=== PATIENT | female | born 1935 | race Caucasian/White ===

== ENCOUNTER 2019-01-18 07:18 | Inpatient (IN) | payer OTHER ==
[~2019-01-18] VITALS: Ht 162.6 cm; Wt 72.0 kg
[2019-01-18] MEDS ORDERED: ASPIRIN 300 MG SUPP PR STA (07:21)
[2019-01-18] MEDS ORDERED: NITROGLYCERIN 50 MG/D5W (PMX) 250 ML IV STA (07:21)
[2019-01-18 07:33] VITALS: Ht 162.6 cm; Wt 72.0 kg
[2019-01-18] MEDS ORDERED: CEFEPIME 2GM/50 ML (PMX) 50 ML IVPB STA (08:42)
[2019-01-18] MEDS ORDERED: ACET-2047 PO (08:44)
[2019-01-18] MEDS ORDERED: ALBU8.5H8 INH (08:44)
[2019-01-18] MEDS ORDERED: IPRA3AMP29 INHALATION (08:45)
[2019-01-18] MEDS ORDERED: ALLO100T PO (08:46)
[2019-01-18] MEDS ORDERED: FAMO10TA84 PO (08:46)
[2019-01-18] MEDS ORDERED: ATOR20TA38 PO (08:46)
[2019-01-18] MEDS ORDERED: FENO145T37 PO (08:47)
[2019-01-18] MEDS ORDERED: GABA300C16 PO (08:47)
[2019-01-18] MEDS ORDERED: HYDR2TAB36 PO (08:48)
[2019-01-18] MEDS ORDERED: APIX2.5T PO (08:50)
[2019-01-18] MEDS ORDERED: FLUT1BLS INHALATION (08:50)
[2019-01-18] MEDS ORDERED: ERGO2000 PO (08:51)
[2019-01-18] MEDS ORDERED: HYDR-3670 PO (08:52)
[2019-01-18] MEDS ORDERED: PRED10TA PO (08:52)
[2019-01-18] MEDS ORDERED: RANI150T5 PO (08:52)
--- NOTE | 2019-01-18 08:52 | ERD ---
ER Documentation Chief Complaint Chief Complaint SOB, hypoxic sudden onset HPI Patient is an 83-year-old female with hypertension, diabetes, chronic kidney disease, anemia, and A. fib who presents with shortness of breath. The patient has right-sided chest pain and high blood pressure. She was given nitroglycerin. CPAP was placed for hypoxia. She was brought in by ambulance. Please note the history and physical exam is limited secondary to the patient's shortness of breath. ROS All systems reviewed and are negative except as per history of present illness. Medications Home Meds Reported Medications Ascorbic Acid* (Vitamin C*) 500 Mg Capsule.sa, 500 MG PO DAILY, CAP 01/18/19 Multivitamins* (Theragran*) 1 Tab Tab, 1 TAB PO DAILY, TAB 01/18/19 Ranitidine Hcl* (Ranitidine Hcl*) 150 Mg Tablet, 150 MG PO HS, #30 TAB 01/18/19 Prednisone* (Prednisone*) 10 Mg Tab, 10 MG PO DAILY, TAB 01/18/19 Hydralazine Hcl* (Hydralazine Hcl*) 10 Mg Tablet, 10 MG PO BID PRN for ELEVATED BLOOD PRESSURE, #60 TAB HOLD FOR SBP <110 01/18/19 Ergocalciferol (Vitamin D2) (VITAMIN D2) 2,000 Unit Tablet, 2000 UNIT PO DAILY, TAB 01/18/19 Fluticasone/Vilanterol (Breo Ellipta 200-25 Mcg INH) 1 Each Blst.w.dev, 1 PUFF INHALATION DAILY, #1 INHALER 01/18/19 Apixaban* (Eliquis*) 2.5 Mg Tablet, 2.5 MG PO BID, TAB 01/18/19 Hydromorphone Hcl* (Dilaudid*) 2 Mg Tablet, 2 MG PO Q2HWA PRN for MODERATE - SEVERE PAIN, TAB 01/18/19 Gabapentin* (Gabapentin*) 300 Mg Capsule, 300 MG PO TID, #90 CAP 01/18/19 Fenofibrate Nanocrystallized* (Fenofibrate*) 145 Mg Tablet, 145 MG PO DAILY, TAB 01/18/19 Atorvastatin Calcium* (Atorvastatin Calcium*) 20 Mg Tablet, 20 MG PO QHS, #30 TAB 01/18/19 Allopurinol* (Allopurinol*) 100 Mg Tablet, 100 MG PO DAILY, TAB 01/18/19 Ipratropium-Albuterol (Ipratropium-Albuterol) 0.5-3 Mg/3 Ml Ampul.neb, 3 ML INHA LATION Q4 PRN for RESPITORY FAILURE, #30 VIAL 01/18/19 Albuterol Sulfate* (Proair HFA*) 8.5 Gm Hfa.aer.ad, 2 PUFF INH Q6 PRN for WHEEZING AND SOB, #1 INHALER 01/18/19 Acetaminophen* (Acetaminophen*) 650 Mg Tablet, 650 MG PO Q4 PRN for MILD PAIN LEVEL 1-3, #30 TAB AND FEVER 01/18/19 Discontinued Reported Medications Famotidine* (Famotidine*) 10 Mg Tablet, 10 MG PO DAILY, #30 TAB 01/18/19 Allergies Allergies: Coded Allergies: No Known Allergy (Unverified , 01/18/19) PMhx/Soc Positive for hypertension, diabetes, anemia, chronic kidney disease, and atrial fibrillation FmHx Unable to obtain Physical Exam Vitals Vital Signs Date Temp Pulse Resp B/P (MAP) Pulse Ox O2 O2 Flow FiO2 Time Delivery Rate 01/18/19 120 100 100 07:37 01/18/19 97.8 78 30 153/122 100 07:33 (132) Physical Exam Const: Moderate distress, CPAP in place Head: Atraumatic Eyes: Normal Conjunctiva ENT: Normal External Ears, Nose and Mouth. Neck: Full range of motion. No meningismus. Resp: Rhonchorous bilaterally Cardio: Regular rate and rhythm, no murmurs Abd: Soft, non tender, non distended. Normal bowel sounds Skin: Pale skin Back: No midline or flank tenderness Ext: No cyanosis, or edema Neur: Awake and alert Psych: Normal Mood and Affect Result Diagram: 01/18/19 0742 01/18/19 0742 Results 24 hrs Laboratory Tests Test 01/18/19 07:39 01/18/19 07:41 01/18/19 07:42 01/18/19 07:46 POC Venous Lactate 1.6 mmol/L Prothrombin Time 15.5 Sec Prothrombin Time 1.2 Ratio INR International 1.22 Normalized Ratio Activated 26.5 Sec Partial Thromboplas t Time White Blood Count 26.9 10^3/ul Red Blood Count 4.69 10^6/ul Hemoglobin 13.5 g/dl Hematocrit 44.4 % Mean Corpuscular 94.7 fl Volume Mean Corpuscular 28.8 pg Hemoglobin Mean Corpuscular 30.4 g/dl Hemoglobin Concent Red Cell 15.9 % Distribution Width Platelet Count 418 10^3/UL Mean Platelet 9.8 fl Volume Immature 1.100 % Granulocytes % Neutrophils % 74.0 % Lymphocytes % 19.8 % Monocytes % 4.2 % Eosinophils % 0.6 % Basophils % 0.3 % Nucleated Red Blood 0.0 /100WBC Cells % Immature 0.300 10^3/ul Granulocytes # Neutrophils # 19.9 10^3/ul Lymphocytes # 5.3 10^3/ul Monocytes # 1.1 10^3/ul Eosinophils # 0.2 10^3/ul Basophils # 0.1 10^3/ul Nucleated Red Blood 0.0 10^3/ul Cells # Sodium Level 144 mmol/L Potassium Level 4.8 mmol/L Chloride Level 106 mmol/L Carbon Dioxide 33 mmol/L Level Anion Gap 5 Blood Urea Nitrogen 62 mg/dl Creatinine 1.34 mg/dl Est Glomerular mL/min Filtrat Rate mL/min Glucose Level 127 mg/dl Calcium Level 9.9 mg/dl Total Bilirubin 0.4 mg/dl Direct Bilirubin 0.00 mg/dl Indirect Bilirubin 0.4 mg/dl Aspartate Amino 51 IU/L Transf (AST/SGOT) Alanine 53 IU/L Aminotransferase (A LT/SGPT) Alkaline 141 IU/L Phosphatase Troponin I 0.107 ng/ml Total Protein 7.2 g/dl Albumin 3.6 g/dl Globulin 3.60 g/dl Albumin/Globulin 1.00 Ratio Urine Color YELLOW Urine Clarity CLEAR Urine pH 5.0 Urine Specific 1.015 [place] Urine Ketones NEGATIVE mg/dL Urine Nitrite NEGATIVE mg/dL Urine Bilirubin NEGATIVE mg/dL Urine Urobilinogen NEGATIVE mg/dL Urine Leukocyte NEGATIVE Estephanie/ul Esterase Urine Microscopic 5 /HPF RBC Urine Microscopic 1 /HPF WBC Urine Squamous FEW /HPF Epithelial Cells Urine Hemoglobin NEGATIVE mg/dL Urine Glucose NEGATIVE mg/dL Urine Total Protein 1+ mg/dl Current Medications Medications Dose Sig/Raphael Start Time Status Last (Trade) Ordered Route PRN Stop Time Admin Dose Reason Admin Aspirin 300 mg ONCE STAT 01/18/19 DC (Aspirin) [place] 07:21 01/18/19 07:23 1 inch ONCE STAT 01/18/19 DC Nitroglycerin TD 07:21 01/18/19 07:23 (Nitroglyceri n 2% Oint) 250 ml @ 6 ONCE STAT 01/18/19 Nitroglycerin mls/hr IV 07:21 01/20/19 / Dextrose 01:00 Cefepime HCl 50 ml @ ONCE STAT 01/18/19 100 mls/hr IVPB 08:42 01/18/19 09:11 Vancomycin 250 ml @ ONCE ONCE 01/18/19 HCl 125 mls/hr IVPB 09:00 01/18/19 10:59 Ondansetron 4 mg ER BRIDGE 01/18/19 HCl (Zofran PRN IV 09:00 01/19/19 Inj) NAUSEA/VOMITI 08:59 NG 650 mg ER BRIDGE 01/18/19 Acetaminophen PRN PO 09:00 01/19/19 (Tylenol .MILD PAIN 08:59 Tab) 1-3 OR TEMP Procedures/MDM Chest x-ray shows CHF and pneumonia per radiology. EKG read by me: Rate/Rhythm: Rapid atrial fibrillation Intervals: Normal Impression: Rapid A. fib without ischemia Sepsis Documentation: Patient's infectious symptoms have not stabilized and the patient is at risk of rapid decompensation. The patient will be admitted for careful hydration, antibiotic therapy, and infectious source control. SEVERE SEPSIS CRITERIA: Infectious source: Pneumonia End organ damage indicated by: Hypoxia and respiratory failure SEPSIS MANAGEMENT Time of recognition of sepsis: 7:42 AM. Time of recognition of severe sepsis: 7:42 AM. Time of recognition of septic shock: No septic shock at this time. 3 HOUR BUNDLE Blood cultures x 2 before broad-spectrum antibiotics: Yes 30 ml/kg NS bolus not given as the patient has congestive heart failure and I am concerned about fluid overload Initial lactate 1.6 Repeat lactate pending SEPTIC SHOCK ASSESSMENT: No lactic acid > 4.0 No persistent hypotension (SBP < 90 or 40 mmHg drop, MAP < 65) despite 30 mL/kg IV fluid bolus VOLUME REASSESSMENT FOR SEPTIC SHOCK: No septic shock at this time PERSISTENT HYPOTENSION TREATMENT: Comfort care no Central line not Required Vasopressor started not required I considered further perfusion assessment with CVP measurement, SCVO2, bedside ultrasound volume assessment, passive leg raise, trial of further fluid bolus. And proceeded with broad-spectrum antibiotics and admission. patient initially was started on nitroglycerin drip and BiPAP but these have been able to be weaned off. I spoke with Dr. Olsen for admission to a telemetry bed as the patient has regal insurance. CRITICAL CARE Critical care time 35 minutes Emergent fluid management while maintaining close respiratory support. Provisio n of immediate and broad-spectrum antibiotic therapy. Simultaneous assessment for possible sources in order to direct targeted therapy. Consideration for invasive and chemical support to prevent cardiopulmonary collapse. Critical care time is independent of procedures performed. Departure Diagnosis: Primary Impression: Severe sepsis Additional Impressions: PNA (pneumonia) Pneumonia type: due to unspecified organism Laterality: unspecified laterality Lung location: unspecified part of lung Qualified Codes: J18.9 - Pneumonia, unspecified organism Shortness of breath CHF (congestive heart failure) Heart failure type: unspecified Heart failure chronicity: acute Qualified Codes: I50.9 - Heart failure, unspecified Condition: Serious MARLYN BARROSO MD Jan 18, 2019 08:52
[2019-01-18] MEDS ORDERED: MULTI PO (08:53)
[2019-01-18] MEDS ORDERED: ASCO500C7 PO (08:53)
[2019-01-18] MEDS ORDERED: ZINC220T PO (08:54)
[2019-01-18] MEDS: NITROGLYCERIN 2% 1 GM OINT PKT TD STA ×2 (08:58→09:00)
[2019-01-18] MEDS ORDERED: morphine 4 MG/ML VIAL IV STA (08:59)
[2019-01-18] MEDS ORDERED: ONDANSETRON 4 MG INJ IV STA (08:59)
[2019-01-18] MEDS ORDERED: ASPIRIN 325 MG TAB PO ONE (09:00)
[2019-01-18] MEDS ORDERED: VANCOMYCIN 1 GM (PMX) 250 ML IVPB ONE (09:00)
[2019-01-18] MEDS ORDERED: ONDANSETRON 4 MG INJ IV PRN (09:00)
[2019-01-18] MEDS ORDERED: ACETAMINOPHEN 325 MG TAB PO PRN ×2 (09:00→11:30)
[2019-01-18] MEDS ORDERED: SOD CHLORIDE 0.9% 1,000 ML IV SCH (11:30)
[2019-01-18] MEDS ORDERED: METOPROLOL 5 MG INJ IV ONE (12:00)
[2019-01-18 13:55] VITALS: PULSE 109
[2019-01-18] MEDS: FENOFIBRATE 145 MG TAB PO SCH (15:23)
[2019-01-18] MEDS: LEVOFLOXACIN 500MG/D5W (PMX) 100 ML IVPB SCH (15:23)
[2019-01-18] MEDS: ALLOPURINOL 100 MG TAB PO SCH (15:35)
[2019-01-18 15:46] VITALS: BP 98/71; PULSE 89; RESP 18
--- NOTE | 2019-01-18 15:46 | CONS ---
Assessment/Plan Cardiology NYHA: II Heart Failure Type: Acute on Chronic Heart Failure Type: Systolic Assessment/Plan Hospital Course (Demo Recall) Shortness of breath Acute decompensated systolic congestive heart failure Possible pneumonia Atrial fibrillation COPD Coronary artery disease -Patient presents with symptoms of shortness of breath over the past few days. 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 -Blood pressure remained stable, would hold IV fluids at the current time -Second set of troponins are elevated, would continue to follow trend -Continue aspirin therapy at the current time, statin therapy, beta-sajan as heart rate and blood pressure permits -Patient plan for thoracentesis Consultation Date/Type/Reason Admit Date/Time Jan 18, 2019 at 08:45 Type of Consult Cardiology Reason for Consultation Shortness of breath Date/Time of Note DATE: 01/18/19 TIME: 15:38 Hx of Present Illness This is an 83-year-old female past medical history of systolic congestive heart failure, atrial fibrillation, hypertension, who presents with progressive worsening shortness of breath over the past few days. Patient is not sure what triggered this event. She denies any chest pain but does complain of plane in her right flank region which is worse with deep inspiration and coughing. She has been coughing more but denies phlegm production. She does feel tired and weak. She denies any fevers. She thinks she might have chills. She tells me she has been compliant with her medications. On review of medical chart, patient initially was on BiPAP and then transitioned off. Shortness of breath is currently better 12 point review of systems was performed with all pertinent positives and nega tives mentioned above and all else is negative Past Medical History COPD Medical History: congestive heart failure, coronary artery disease, diabetes, high cholesterol, hypertension, renal disease Home Meds Reported Medications Zinc Sulfate* (Zinc Sulfate*) 220 Mg Tablet, 220 MG PO DAILY, TAB STOP 01-21-19 01/18/19 Ascorbic Acid* (Vitamin C*) 500 Mg Capsule.sa, 500 MG PO DAILY, CAP 01/18/19 Multivitamins* (Theragran*) 1 Tab Tab, 1 TAB PO DAILY, TAB 01/18/19 Ranitidine Hcl* (Ranitidine Hcl*) 150 Mg Tablet, 150 MG PO HS, #30 TAB 01/18/19 Prednisone* (Prednisone*) 10 Mg Tab, 10 MG PO DAILY, TAB 01/18/19 Hydralazine Hcl* (Hydralazine Hcl*) 10 Mg Tablet, 10 MG PO BID PRN for ELEVATED BLOOD PRESSURE, #60 TAB HOLD FOR SBP <110 01/18/19 Ergocalciferol (Vitamin D2) (VITAMIN D2) 2,000 Unit Tablet, 2000 UNIT PO DAILY, TAB 01/18/19 Fluticasone/Vilanterol (Breo Ellipta 200-25 Mcg INH) 1 Each Blst.w.dev, 1 PUFF INHALATION DAILY, #1 INHALER 01/18/19 Hydromorphone Hcl* (Dilaudid*) 2 Mg Tablet, 2 MG PO Q2HWA PRN for MODERATE - SEVERE PAIN, TAB 01/18/19 Gabapentin* (Gabapentin*) 300 Mg Capsule, 300 MG PO TID, #90 CAP 01/18/19 Fenofibrate Nanocrystallized* (Fenofibrate*) 145 Mg Tablet, 145 MG PO DAILY, TAB 01/18/19 Atorvastatin Calcium* (Atorvastatin Calcium*) 20 Mg Tablet, 20 MG PO QHS, #30 TAB 01/18/19 Allopurinol* (Allopurinol*) 100 Mg Tablet, 100 MG PO DAILY, TAB 01/18/19 Ipratropium-Albuterol (Ipratropium-Albuterol) 0.5-3 Mg/3 Ml Ampul.neb, 3 ML INHALATION Q4 PRN for RESPITORY FAILURE, #30 VIAL 01/18/19 Albuterol Sulfate* (Proair HFA*) 8.5 Gm Hfa.aer.ad, 2 PUFF INH Q6 PRN for WHEEZING AND SOB, #1 INHALER 01/18/19 Acetaminophen* (Acetaminophen*) 650 Mg Tablet, 650 MG PO Q4 PRN for MILD PAIN LEVEL 1-3, #30 TAB AND FEVER 01/18/19 Discontinued Reported Medications Apixaban* (Eliquis*) 2.5 Mg Tablet, 2.5 MG PO BID, TAB 01/18/19 Famotidine* (Famotidine*) 10 Mg Tablet, 10 MG PO DAILY, #30 TAB 01/18/19 Medications Current Medications Ondansetron HCl (Zofran Inj) 4 mg ER BRIDGE PRN IV NAUSEA/VOMITING; Start 6/3/19 at 09:00; Stop 01/19/19 at 08:59 Acetaminophen (Tylenol Tab) 650 mg ER BRIDGE PRN PO .MILD PAIN 1-3 OR TEMP; Start 01/18/19 at 09:00; Stop 01/19/19 at 08:59 Levofloxacin/ Dextrose 100 ml @ 100 mls/hr Q24H IVPB ; Start 01/18/19 at 12:00 Sodium Chloride 1,000 ml @ 75 mls/hr [id number] IV ; Start 01/18/19 at 11:30 Albuterol/ Ipratropium (Duoneb) 3 ml Q4H RESP THERAPY HHN ; Start 01/18/19 at 13:00 Acetaminophen (Tylenol Tab) 650 mg Q4H PRN PO MILD PAIN LEVEL 1-3; Start 01/18/19 at 11:30 Allopurinol (Zyloprim) 100 mg DAILY PO ; Start 01/18/19 at 12:00 Atorvastatin Calcium (Lipitor) 20 mg QHS PO ; Start 01/18/19 at 21:00 Fenofibrate (Tricor) 145 mg DAILY PO ; Start 01/18/19 at 12:00 Ranitidine HCl (Zantac) 150 mg HS PO ; Start 01/18/19 at 21:00 Metoprolol Tartrate (Lopressor) 25 mg BID PO ; Start 01/18/19 at 21:00; Status UNV Allergies: Coded Allergies: No Known Allergy (Unverified , 01/18/19) Past Surgical History Past Surgical Hx: angioplasty Social History Smoking Status: Former smoker Exam/Review of Systems Vital Signs Vitals Vital Signs Date Temp Pulse Resp B/P (MAP) Pulse Ox O2 O2 Flow FiO2 Time Delivery Rate 01/18/19 97.8 108 22 96/49 (65) 97 Nasal 5.0 13:07 Cannula 01/18/19 100 07:37 Exam Constitutional: alert, oriented (No apparent distress, eating lunch) Head: normocephalic Respiratory: other (Coarse breath sounds bilaterally, decreased at the bases) Cardiovascular: irregular rhythm, systolic murmur Gastrointestinal: soft, non-tender, bowel sounds Extremities: edema Labs Result Diagram: 01/18/19 0742 01/18/19 0742 Results 24hrs Laboratory Tests Test 01/18/19 07:39 01/18/19 07:41 01/18/19 07:42 01/18/19 07:46 POC Venous Lactate 1.6 Prothrombin Time 15.5 H Prothrombin Time Ratio 1.2 INR International 1.22 Normalized Ratio Activated 26.5 Partial Thromboplast Time White Blood Count 26.9 H Red Blood Count 4.69 Hemoglobin 13.5 Hematocrit 44.4 Mean Corpuscular Volume 94.7 Mean Corpuscular 28.8 L Hemoglobin Mean Corpuscular 30.4 L Hemoglobin Concent Red Cell Distribution 15.9 H Width Platelet Count 418 H Mean Platelet Volume 9.8 Immature Granulocytes % 1.100 H Neutrophils % 74.0 Lymphocytes % 19.8 Monocytes % 4.2 Eosinophils % 0.6 Basophils % 0.3 Nucleated Red Blood 0.0 Cells % Immature Granulocytes # 0.300 H Neutrophils # 19.9 H Lymphocytes # 5.3 H Monocytes # 1.1 H Eosinophils # 0.2 Basophils # 0.1 Nucleated Red Blood 0.0 Cells # Sodium Level 144 Potassium Level 4.8 Chloride Level 106 Carbon Dioxide Level 33 H Anion Gap 5 Blood Urea Nitrogen 62 H Creatinine 1.34 H Est Glomerular Filtrat Rate mL/min Glucose Level 127 Calcium Level 9.9 Total Bilirubin 0.4 Direct Bilirubin 0.00 Indirect Bilirubin 0.4 Aspartate Amino 51 H Transf (AST/SGOT) Alanine 53 Aminotransferase (ALT/SG PT) Alkaline Phosphatase 141 H Troponin I 0.107 Total Protein 7.2 Albumin 3.6 Globulin 3.60 H Albumin/Globulin Ratio 1.00 Urine Color YELLOW Urine Clarity CLEAR Urine pH 5.0 Urine Specific [place] 1.015 Urine Ketones NEGATIVE Urine Nitrite NEGATIVE Urine Bilirubin NEGATIVE Urine Urobilinogen NEGATIVE Urine Leukocyte Esterase NEGATIVE Urine Microscopic RBC 5 Urine Microscopic WBC 1 Urine Squamous FEW Epithelial Cells Urine Hemoglobin NEGATIVE Urine Glucose NEGATIVE Urine Total Protein 1+ H Test 01/18/19 12:57 Lactic Acid Level 1.3 Creatine Kinase < 20 L Creatine Kinase Index Creatinine Kinase MB 2.79 H (Mass) Troponin I 0.444 *H Imaging Imaging ECG with atrial fibrillation at 130 bpm, QRS 88 ms, inferior and anterolateral Q waves Medications Medications Current Medications Ondansetron HCl (Zofran Inj) 4 mg ER BRIDGE PRN IV NAUSEA/VOMITING; Start 01/18/19 at 09:00; Stop 01/19/19 at 08:59 Acetaminophen (Tylenol Tab) 650 mg ER BRIDGE PRN PO .MILD PAIN 1-3 OR TEMP; Start 01/18/19 at 09:00; Stop 01/19/19 at 08:59 Levofloxacin/ Dextrose 100 ml @ 100 mls/hr Q24H IVPB ; Start 01/18/19 at 12:00 Sodium Chloride 1,000 ml @ 75 mls/hr [id number] IV ; Start 01/18/19 at 11:30 Albuterol/ Ipratropium (Duoneb) 3 ml Q4H RESP THERAPY HHN ; Start 01/18/19 at 1 3:00 Acetaminophen (Tylenol Tab) 650 mg Q4H PRN PO MILD PAIN LEVEL 1-3; Start 01/18/19 at 11:30 Allopurinol (Zyloprim) 100 mg DAILY PO ; Start 01/18/19 at 12:00 Atorvastatin Calcium (Lipitor) 20 mg QHS PO ; Start 01/18/19 at 21:00 Fenofibrate (Tricor) 145 mg DAILY PO ; Start 01/18/19 at 12:00 Ranitidine HCl (Zantac) 150 mg HS PO ; Start 01/18/19 at 21:00 Metoprolol Tartrate (Lopressor) 25 mg BID PO ; Start 01/18/19 at 21:00; Status Thierno Denton DO Jan 18, 2019 15:46
[2019-01-18 16:00] VITALS: PULSE 87
[2019-01-18] MEDS ORDERED: LIDOCAINE 1% (MPF) 5 ML VIAL ONE (16:43)
[2019-01-18] MEDS: ALBUTEROL/IPRATROPIUM (NEB) 3 ML AMP HHN SCH ×3 (17:00→21:25)
--- NOTE | 2019-01-18 17:26 | HP ---
DATE OF ADMISSION: 01/18/2019 CHIEF COMPLAINT: Shortness of breath. HISTORY OF PRESENT ILLNESS: An 83-year-old female with hypertension, diabetes mellitus, chronic kidn ey disease, COPD and chronic atrial fibrillation who presented to emergency room with complaint of sh ortness of breath. She also reported right-sided chest pain. The patient was initially placed on a CPAP. At the time of my visit, she did not complain of any chest pain but reported shortness of zane th. Initial evaluation in the emergency room revealed a white blood cell count of 26,900. BUN and creati nine were 62 and 1.34. Serum lactate was normal at 1.3. Initial troponin was normal, but repeat tro ponin was elevated to 0.444. Chest x-ray showed a moderate to large left and small right-sided pleur al effusion with left lower lobe compressive atelectasis. Bilateral perihilar opacities were noted r eflecting pulmonary edema versus pneumonia. Aortic atherosclerosis was also noted. PAST MEDICAL HISTORY: 1. Hypertension. 2. Chronic obstructive pulmonary disease. 3. Paroxysmal atrial fibrillation. 4. Hyperlipidemia. 5. Type 2 diabetes mellitus. 6. Chronic kidney disease. MEDICATIONS PRIOR TO ADMISSION: 1. Vitamin C. 2. Multivitamins. 3. Ranitidine. 4. Prednisone. 5. Hydralazine. 6. Vitamin D. 7. Breo inhaler. 8. Eliquis. 9. Dilaudid. 10. Gabapentin. 11. Fenofibrate. 12. Atorvastatin. 13. Allopurinol. SOCIAL HISTORY: The patient apparently lives at home. She is a poor historian. She denies tobacco or alcohol use. PHYSICAL EXAMINATION: GENERAL: Well-developed, well-nourished elderly female who is alert and oriented to place. VITAL SIGNS: Stable. She is afebrile. HEENT: Extraocular muscles intact. Pupils are equal and reactive to light bilaterally. Sclerae are anicteric. Oropharynx is clear and moist. NECK: Supple, no JVD, no carotid bruits. LUNGS: Decreased breath sound at the bases, diffuse rhonchi. CARDIAC: Rapid rate, irregularly irregular. ABDOMEN: Soft, nontender, nondistended, normoactive bowel sounds. EXTREMITIES: No clubbing, cyanosis, or edema. NEUROLOGICAL: Grossly nonfocal. ASSESSMENT: An 83-year-old female presenting with: 1. Acute shortness of breath. 2. Community-acquired pneumonia. 3. Large and recurrent left-sided pleural effusion. 4. Acute non-ST elevation myocardial infarction. 5. Hypertension. 6. Hyperlipidemia. 7. Stage III chronic kidney disease. 8. Dehydration. 9. Atrial fibrillation with rapid ventricular rate. PLAN: 1. Admit to telemetry. IV Levaquin, DuoNeb, ultrasound-guided left-sided thoracentesis. 2. Resume selective home medications. 3. Start low-dose Lopressor. 4. Cardiology consultation was requested. Dictated By: NAIF MIRELES/HENOK Conf#: [id number] DID#: [id number]
[2019-01-18 20:00] VITALS: PULSE 93
[2019-01-18] MEDS: METOPROLOL 25 MG TAB PO SCH (20:40)
[2019-01-18 20:44] VITALS: BP 85/51; PULSE 94; RESP 16
[2019-01-18] MEDS ORDERED: ATORVASTATIN 20 MG TAB PO SCH (21:00)
[2019-01-18] MEDS: RANITIDINE 150 MG TAB PO SCH ×2 (21:00→23:46)
[2019-01-19] VITALS (12 sets, daily range): BP systolic 96–121; BP diastolic 48–78; PULSE 71–99; RESP 18–20
[2019-01-19] MEDS: ALBUTEROL/IPRATROPIUM (NEB) 3 ML AMP HHN SCH ×6 (00:08→20:29)
[2019-01-19] MEDS: ASPIRIN 81 MG TAB PO SCH (08:28)
[2019-01-19] MEDS: METOPROLOL 25 MG TAB PO SCH ×2 (08:28→20:10)
[2019-01-19] MEDS: FENOFIBRATE 145 MG TAB PO SCH (08:28)
[2019-01-19] MEDS: ALLOPURINOL 100 MG TAB PO SCH (08:28)
--- NOTE | 2019-01-19 09:46 | PN ---
Date/Time of Note Date/Time of Note DATE: 01/19/19 TIME: 09:40 Subjective Reports feeling better. Less shortness of breath. No chest pain Objective Vitals Vital Signs Date Temp Pulse Resp B/P (MAP) Pulse Ox O2 O2 Flow FiO2 Time Delivery Rate 01/19/19 96 08:13 01/19/19 98.0 18 118/78 98 07:44 (91) 01/19/19 Nasal 2.0 28 04:55 Cannula Intake and Output 01/18/19 01/18/19 01/19/19 1515:00 23:00 07:00 IntakeIntake Total 300 ml 600 ml OutputOutput Total 100 ml 700 ml BalanceBalance 200 ml -100 ml Mild rhonchi bilaterally Regular rate and rhythm no murmurs or gallops Soft nontender nondistended normoactive bowel sounds No edema Nonfocal Results Result Diagram: 01/19/1951701/19/1918 Medications Medications Current Medications Levofloxacin/ Dextrose 100 ml @ 100 mls/hr Q24H IVPB Last administered on 01/18/19 15:23; Admin Dose 100 MLS/HR; Start 01/18/19 at 12:00 Albuterol/ Ipratropium (Duoneb) 3 ml Q4H RESP THERAPY HHN Last administered on 01/19/19 04:55; Admin Dose 3 ML; Start 01/18/19 at 13:00 Acetaminophen (Tylenol Tab) 650 mg Q4H PRN PO MILD PAIN LEVEL 1-3 Last administered on 01/19/19 06:47; Admin Dose 650 MG; Start 01/18/19 at 11:30 Allopurinol (Zyloprim) 100 mg DAILY PO Last administered on 01/19/19 08:28; Admin Dose 100 MG; Start 01/18/19 at 12:00 Atorvastatin Calcium (Lipitor) 20 mg QHS PO Last administered on 01/18/19 20:04; Admin Dose 20 MG; Start 01/18/19 at 21:00 Fenofibrate (Tricor) 145 mg DAILY PO Last administered on 01/19/19 08:28; Admin Dose 145 MG; Start 01/18/19 at 12:00 Ranitidine HCl (Zantac) 150 mg HS PO Last administered on 01/18/19 23:46; Admin Dose 150 MG; Start 01/18/19 at 21:00 Metoprolol Tartrate (Lopressor) 25 mg BID PO Last administered on 01/19/19at 08:28; Admin Dose 25 MG; Start 01/18/19 at 21:00 Aspirin (Aspirin) 81 mg DAILY PO Last administered on 01/19/19at 08:28; Admin Dose 81 MG; Start 01/19/19 at 09:00 VTE Prophylaxis Risk score (from [facility])>0 risk: 8 SCD applied (from [facility]): Yes Lines/Catheters IV Catheter Type: Saline Lock Card in Place: No Assessment/Plan Assessment/Plan 83-year-old female with community-acquired pneumonia Recurrent left pleural effusion, status post thoracentesis Acute non-STEMI. Patient is not an appropriate candidate for angiography Acute kidney injury Dehydration Atrial fibrillation with rapid ventricular response, better rate controlled Hypertension Hyperlipidemia History of cardiomyopathy with EF of 40% in the past Hyperkalemia Continue IV Levaquin Gentle IV fluid hydration Optimal medical therapy Monitor renal function Case was discussed with db2 systems programmer NAIF COBB MD Jan 19, 2019 09:46
[2019-01-19] MEDS ORDERED: SOD CHLORIDE 0.9% 1,000 ML IV SCH (10:00)
[2019-01-19] MEDS ORDERED: SODIUM POLYSTYRENE 15 GM KIT (POWDER + SORBITOL) PO ONE (10:00)
--- NOTE | 2019-01-19 10:54 | CONS ---
Assessment/Plan Cardiology NYHA: II Heart Failure Type: Acute on Chronic Heart Failure Type: Systolic Assessment/Plan Hospital Course (Demo Recall) Shortness of breath Acute decompensated systolic congestive heart failure Possible pneumonia Elevated troponin, trending down, concern for myocardial infarction Atrial fibrillation COPD Coronary artery disease -Patient presents with symptoms of shortness of breath over the past few days. 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 Repeat echocardiogram pending. -Patient's troponin are trending down. Unclear if this is a primary event versus type II DC secondary to pneumonia/CHF. Also patient with worsening renal function which could be contributing factor. Given her worsening renal function, downtrending troponin overall medical state, I think the risks of cardiac catheterization the current time outweighs the benefits. I have attempted to contact the patient's son Grayson at the phone number listed twice without a response. -Continue aspirin therapy at the current time, statin therapy, beta-sajan as heart rate and blood pressure permits -Patient placed on fluids, would watch closely for decompensated congestive heart failure Consultation Date/Type/Reason Admit Date/Time Jan 18, 2019 at 08:45 Initial Consult Date Type of Consult Cardiology Date/Time of Note DATE: 01/19/19 TIME: 10:47 24 HR Interval Summary Free Text/Dictation Shortness of breath is better. Denies chest pain. Complaining of right upper quadrant pain which is worse with deep inspiration and movement Exam/Review of Systems Vital Signs Vitals Vital Signs Date Temp Pulse Resp B/P (MAP) Pulse Ox O2 O2 Flow FiO2 Time Delivery Rate 01/19/19 3.0 10:22 01/19/19 95 24 95 Nasal 32 10:21 Cannula 01/19/19 98.0 118/78 07:44 (91) Intake and Output 01/18/19 01/18/19 01/19/19 1515:00 23:00 07:00 IntakeIntake Total 300 ml 600 ml OutputOutput Total 100 ml 700 ml BalanceBalance 200 ml -100 ml Exam Constitutional: alert, oriented Head: normocephalic Respiratory: other (Coarse breath sounds bilaterally, decreased at the bases) Cardiovascular: irregular rhythm (S1-S2 heard) Gastrointestinal: soft, non-tender, bowel sounds Extremities: edema Labs Result Diagram: 01/19/19 0518 01/19/19 0518 Results 24hrs Laboratory Tests Test 01/18/19 12:37 01/18/19 12:57 01/18/19 20:45 01/19/19 01:12 B-Type Natriuretic 04868 H Peptide Lactic Acid Level 1.3 Creatine Kinase < 20 L < 20 L Creatine Kinase Index Creatinine Kinase MB 2.79 H 2.55 H (Mass) Troponin I 0.444 *H 0.647 *H 0.570 *H Test 01/19/19 05:18 White Blood Count 12.8 #H Red Blood Count 3.29 #L Hemoglobin 9.5 #L Hematocrit 31.4 #L Mean Corpuscular Volume 95.4 Mean Corpuscular 28.9 L Hemoglobin Mean Corpuscular 30.3 L Hemoglobin Concent Red Cell Distribution 16.1 H Width Platelet Count 262 # Mean Platelet Volume 10.5 H Immature Granulocytes % 0.600 H Neutrophils % 77.0 Lymphocytes % 14.3 L Monocytes % 7.0 Eosinophils % 0.6 Basophils % 0.5 Nucleated Red Blood 0.0 Cells % Immature Granulocytes # 0.080 H Neutrophils # 9.9 H Lymphocytes # 1.8 Monocytes # 0.9 Eosinophils # 0.1 Basophils # 0.1 Nucleated Red Blood 0.0 Cells # Sodium Level 139 Potassium Level 5.5 H Chloride Level 106 Carbon Dioxide Level 28 Anion Gap 5 Blood Urea Nitrogen 76 H Creatinine 2.02 H Est Glomerular Filtrat Rate mL/min Glucose Level 130 Calcium Level 8.9 Creatine Kinase < 20 L Creatine Kinase Index Creatinine Kinase MB 2.14 (Mass) Troponin I 0.530 *H Medications Medications Current Medications Levofloxacin/ Dextrose 100 ml @ 100 mls/hr Q24H IVPB Last administered on 01/18/19at 15:23; Admin Dose 100 MLS/HR; Start 01/18/19 at 12:00 Albuterol/ Ipratropium (Duoneb) 3 ml Q4H RESP THERAPY HHN Last administered on 01/19/19at 10:20; Admin Dose 3 ML; Start 01/18/19 at 13:00 Acetaminophen (Tylenol Tab) 650 mg Q4H PRN PO MILD PAIN LEVEL 1-3 Last administered on 01/19/19at 06:47; Admin Dose 650 MG; Start 01/18/19 at 11:30 Allopurinol (Zyloprim) 100 mg DAILY PO Last administered on 01/19/19 08:28; Admin Dose 100 MG; Start 01/18/19 at 12:00 Atorvastatin Calcium (Lipitor) 20 mg QHS PO Last administered on 01/18/19at 20:04; Admin Dose 20 MG; Start 01/18/19 at 21:00 Fenofibrate (Tricor) 145 mg DAILY PO Last administered on 01/19/19 08:28; Admin Dose 145 MG; Start 01/18/19 at 12:00 Ranitidine HCl (Zantac) 150 mg HS PO Last administered on 01/18/19at 23:46; Admin Dose 150 MG; Start 01/18/19 at 21:00 Metoprolol Tartrate (Lopressor) 25 mg BID PO Last administered on 01/19/19 08:28; Admin Dose 25 MG; Start 01/18/19 at 21:00 Aspirin (Aspirin) 81 mg DAILY PO Last administered on 01/19/19 08:28; Admin Dose 81 MG; Start 01/19/19 at 09:00 Sodium Chloride 1,000 ml @ 75 mls/hr [id number] IV ; Start 01/19/19 at 10:00; Stop 01/19/19 at 23:19 Thierno Medina DO Jan 19, 2019 10:54
[2019-01-19] MEDS ORDERED: ENOXAPARIN 80 MG/0.8 ML SYG SC SCH (11:00)
--- NOTE | 2019-01-19 11:22 | RADRPT ---
Echocardiogram Report Patient Name: ANUPAM MENA MPatient ID: [id number] : 1935 (83y 5m)Study Date: 01/19/2019 7:34:47 AM Gender: FAccession #: [id number] Tech: CandyAmy Guillen [facility] Location: [facility] Ref.Physician: THIERNO MEDINA Height(Cm): BSA: Weight(Kg): Quality: AdequateOrder Physician: THIERNO MEDINA Account #: Procedures: Echocardiographic Report: Transthoracic echocardiogram with complete 2D, M-Mode, and doppler examination. Indications: Congestive Heart Failure. Measurements: 2D/M Mode Doppler Measurement Value Normal Range Measurement Value Normal Range LVIDd 2D 3.7 [ 3.8 - 5.2 ] cm AV Peak Eduin 1.6 [ 100.0 - 170.0 ] cm/sec LVIDs 2D 2.7 [ 2.2 - 3.5 ] cm AV Peak PG 10.0 [ 2.0 - 9.0 ] mmHg LVPWd 2D 1.0 [ 0.6 - 0.9 ] cm LVOT Peak Eduin 0.9 [ 70.0 - 110.0 ] cm/sec IVSd 2D 0.9 [ 0.6 - 0.9 ] cm LVOT Peak PG 4.0 [ 2.0 - 6.0 ] mmHg AoR Diam 2D 2.3 [ 2.3 - 3.1 ] cm MV E Peak Eduin 0.9 [ 60.0 - 130.0 ] cm/sec EDV 2D 58.1 [ 46.0 - 106.0 ] ml MV Decel Time 99 [ 104 - 258 ] msec ESV 2D 27.8 [ 14.0 - 42.0 ] ml Lat E` Eduin 0.1 [ 10.0 - 15.0 ] cm/sec EF 2D 52.2 [ 54.0 - 74.0 ] percent Lateral E/E` 14.0 [ 1.0 - 2.0 ] ratio LA Dimen 2D 4.3 [ 2.7 - 3.8 ] cm TR Peak Eduin 3.2 [ 100.0 - 280.0 ] cm/sec TR Peak PG 41.0 mmHg RVSP 44.0 [ 10.0 - 36.0 ] mmHg RA Pressure 3.0 mmHg Findings: Left Ventricle: Normal left ventricular cavity size. Normal left ventricular wall thickness. Mild left ventricular systolic dysfunction. Ejection fraction is visually estimated at 45-50 %. Abnormal Diastolic Function. Right Ventricle: Normal right ventricular size. Normal right ventricular systolic function. Left Atrium: The left atrium is normal in size. Right Atrium: The right atrium is normal in size. Mitral Valve: Mitral valve leaflets appear mildly thickened. Moderate mitral annular calcification. Mild to moderate mitral valve regurgitation. Aortic Valve: No significant aortic stenosis or insufficiency. Aortic cusps appear mildly calcified. Tricuspid Valve: Normal appearance of the tricuspid valve. The estimated Peak RVSP is 44 mmHg. There is mild tricuspid regurgitation. Pulmonic Valve: Normal pulmonic valve appearance. Pericardium: Normal pericardium with no significant pericardial effusion. Pleural effusion seen. Aorta: Normal aortic root. IVC: Normal size and normal respiratory collapse consistent with normal right atrial pressure. Conclusions: Normal left ventricular cavity size. Normal left ventricular wall thickness. Mild left ventricular systolic dysfunction. Ejection fraction is visually estimated at 45-50 %. Abnormal Diastolic Function. Normal right ventricular size. Normal right ventricular systolic function. The left atrium is normal in size. The right atrium is normal in size. Mild to moderate mitral valve regurgitation. No significant aortic stenosis or insufficiency. The estimated Peak RVSP is 44 mmHg. There is mild tricuspid regurgitation. Normal pericardium with no significant pericardial effusion. Pleural effusion seen. Electronically Signed By: Thierno Medina 2019-01-19 11:22:16 PDT
[2019-01-19] MEDS: LEVOFLOXACIN 500MG/D5W (PMX) 100 ML IVPB SCH (11:55)
[2019-01-19] MEDS: morphine 2 MG INJ IV PRN ×2 (17:51→21:55)
[2019-01-19] MEDS: BETAMETHASONE/CLOTRIMAZOLE 15 GM CR TOP SCH (20:10)
[2019-01-19] MEDS: RANITIDINE 150 MG TAB PO SCH (20:10)
[2019-01-19] MEDS ORDERED: ATORVASTATIN 40 MG TAB PO SCH (21:00)
[2019-01-20] VITALS (8 sets, daily range): BP systolic 116–135; BP diastolic 54–58; PULSE 76–109; RESP 18–20
[2019-01-20] MEDS: ALBUTEROL/IPRATROPIUM (NEB) 3 ML AMP HHN SCH ×5 (01:15→16:28)
[2019-01-20] MEDS: morphine 2 MG INJ IV PRN (05:09)
[2019-01-20] MEDS ORDERED: SOD CHLORIDE 0.9% 1,000 ML IV SCH (08:30)
[2019-01-20] MEDS: METOPROLOL 25 MG TAB PO SCH (08:40)
[2019-01-20] MEDS: ALLOPURINOL 100 MG TAB PO SCH (08:40)
[2019-01-20] MEDS: ASPIRIN 81 MG TAB PO SCH (08:40)
[2019-01-20] MEDS: FENOFIBRATE 145 MG TAB PO SCH (08:40)
[2019-01-20] MEDS: BETAMETHASONE/CLOTRIMAZOLE 15 GM CR TOP SCH (08:41)
[2019-01-20] MEDS ORDERED: ZINC SULFATE 220 MG CAP PO SCH (09:00)
[2019-01-20] MEDS ORDERED: MULTIVITAMINS/MINERALS TAB PO SCH (09:00)
[2019-01-20] MEDS ORDERED: ASCORBIC ACID 500 MG TAB PO SCH (09:00)
[2019-01-20] MEDS ORDERED: LEVO500T10 PO (09:47)
[2019-01-20] MEDS ORDERED: CLOT15CR6 TOP (09:47)
--- NOTE | 2019-01-20 11:43 | CONS ---
Assessment/Plan Cardiology NYHA: II Heart Failure Type: Acute on Chronic Heart Failure Type: Systolic Assessment/Plan Hospital Course (Demo Recall) Shortness of breath-improved Acute decompensated systolic congestive heart failure Left ventricular ejection fraction 45 to 50% Mitral and tricuspid valve regurgitation Possible pneumonia Elevated troponin, trending down, concern for myocardial infarction Atrial fibrillation COPD Coronary artery disease Patient denies any chest pain or shortness of breath currently. Please refer to my progress note yesterday discussing plan of care and discussion with patient's son. Given not planned for any procedures, would restart patient's Eliquis Continue aspirin therapy at the current time, statin therapy, beta-sajan as heart rate and blood pressure permits Consultation Date/Type/Reason Admit Date/Time Jan 18, 2019 at 08:45 Initial Consult Date Type of Consult Cardiology Date/Time of Note DATE: 01/20/19 TIME: 11:40 24 HR Interval Summary Free Text/Dictation Denies any shortness of breath, chest pain Exam/Review of Systems Vital Signs Vitals Vital Signs Date Temp Pulse Resp B/P (MAP) Pulse Ox O2 O2 Flow FiO2 Time Delivery Rate 01/20/19 2.0 08:37 01/20/19 110 20 Nasal 08:36 Cannula 01/20/19 97.9 116/54 99 07:18 (74) 01/19/19 32 10:21 Intake and Output 01/19/19 01/19/19 01/20/19 1515:00 23:00 07:00 IntakeIntake Total 700 ml 700 ml 1500 ml OutputOutput Total 500 ml 1300 ml 1150 ml BalanceBalance 200 ml -600 ml 350 ml Exam Exam Sleeping but arousable, no apparent distress, following commands Head: normocephalic Respiratory: other (Coarse breath sounds bilaterally, no wheezing) Cardiovascular: irregular rhythm (S1-S2 heard) Gastrointestinal: soft, non-tender, bowel sounds Extremities: edema Labs Result Diagram: 01/20/19 0550 01/20/19 0550 Results 24hrs Laboratory Tests Test 01/20/19 05:50 White Blood Count 12.7 H Red Blood Count 3.28 L Hemoglobin 9.6 L Hematocrit 31.1 L Mean Corpuscular Volume 94.8 Mean Corpuscular Hemoglobin 29.3 Mean Corpuscular Hemoglobin Concent 30.9 L Red Cell Distribution Width 16.4 H Platelet Count 220 Mean Platelet Volume 9.8 Immature Granulocytes % 0.600 H Neutrophils % 80.8 H Lymphocytes % 10.6 L Monocytes % 6.4 Eosinophils % 1.3 Basophils % 0.3 Nucleated Red Blood Cells % 0.0 Immature Granulocytes # 0.080 H Neutrophils # 10.3 H Lymphocytes # 1.3 Monocytes # 0.8 Eosinophils # 0.2 Basophils # 0.0 Nucleated Red Blood Cells # 0.0 Sodium Level 138 Potassium Level 5.1 Chloride Level 105 Carbon Dioxide Level 26 Anion Gap 7 Blood Urea Nitrogen 76 H Creatinine 2.04 H Est Glomerular Filtrat Rate mL/min Glucose Level 131 Calcium Level 8.7 Medications Medications Current Medications Levofloxacin/ Dextrose 100 ml @ 100 mls/hr Q24H IVPB Last administered on 01/19/19 11:55; Admin Dose 100 MLS/HR; Start 01/18/19 at 12:00 Albuterol/ Ipratropium (Duoneb) 3 ml Q4H RESP THERAPY HHN Last administered on 01/20/19 08:35; Admin Dose 3 ML; Start 01/18/19 at 13:00 Acetaminophen (Tylenol Tab) 650 mg Q4H PRN PO MILD PAIN LEVEL 1-3 Last administered on 01/19/19 06:47; Admin Dose 650 MG; Start 01/18/19 at 11:30 Allopurinol (Zyloprim) 100 mg DAILY PO Last administered on 01/20/19 08:40; Admin Dose 100 MG; Start 01/18/19 at 12:00 Fenofibrate (Tricor) 145 mg DAILY PO Last administered on 01/20/19 08:40; Admin Dose 145 MG; Start 01/18/19 at 12:00 Ranitidine HCl (Zantac) 150 mg HS PO Last administered on 01/19/19 20:10; Admin Dose 150 MG; Start 01/18/19 at 21:00 Metoprolol Tartrate (Lopressor) 25 mg BID PO Last administered on 01/20/19 08:40; Admin Dose 25 MG; Start 01/18/19 at 21:00 Aspirin (Aspirin) 81 mg DAILY PO Last administered on 01/20/19 08:40; Admin Dose 81 MG; Start 01/19/19 at 09:00 Atorvastatin Calcium (Lipitor) 40 mg QHS PO Last administered on 01/19/19 20:10; Admin Dose 40 MG; Start 01/19/19 at 21:00 Betamethasone/ Clotrimazole (Lotrisone Cr) 1 applic BID TOP Last administered on 01/20/19 08:41; Admin Dose 1 APPLIC; Start 01/19/19 at 21:00 Morphine Sulfate (morphine) 2 mg Q3H PRN IV SEVERE PAIN LEVEL 7-10 Last administered on 01/20/19 05:09; Admin Dose 2 MG; Start 01/19/19 at 16:30 Multivitamins/ Minerals (Theragran-M) 1 tab DAILY PO Last administered on 01/20/19 08:40; Admin Dose 1 TAB; Start 01/20/19 at 09:00 Ascorbic Acid (Vitamin C) 500 mg DAILY PO Last administered on 01/20/19 08:40; Admin Dose 500 MG; Start 01/20/19 at 09:00; Stop 02/03/19 at 09:00 Zinc Sulfate (Zinc Sulfate) 220 mg DAILY PO Last administered on 01/20/19 08:41; Admin Dose 220 MG; Start 01/20/19 at 09:00; Stop 02/03/19 at 09:00 Sodium Chloride 1,000 ml @ 75 mls/hr [id number] IV Last administered on 01/20/19 08:42; Admin Dose 75 MLS/HR; Start 01/20/19 at 08:30 Thierno Medina DO Jan 20, 2019 11:43
[2019-01-20] MEDS: LEVOFLOXACIN 500MG/D5W (PMX) 100 ML IVPB SCH (11:50)
[2019-01-20] MEDS ORDERED: APIXABAN 5 MG TABLET PO SCH (21:00)
--- NOTE | 2019-01-20 23:19 | DS ---
DATE OF ADMISSION: 01/18/2019 DATE OF DISCHARGE: 01/20/2019 DISCHARGE DIAGNOSES: 1. An 83-year-old female with community-acquired pneumonia. 2. Recurrent left pleural effusion, status post thoracentesis. 3. Acute non-ST elevation myocardial infarction. 4. Hypertension. 5. Type 2 diabetes mellitus. 6. Stage IV chronic kidney disease. 7. Dehydration. 8. Chronic obstructive pulmonary disease. 9. Chronic atrial fibrillation, rate controlled. HOSPITAL COURSE: An 83-year-old female with multiple other medical problems who presented to [facility] with complaint of shortness of breath. The patient was initially placed on CPAP. Chest x-ra y showed right greater than left perihilar opacities. There was a moderate to large left pleural eff usion. The patient was started on empiric antibiotic therapy. She underwent a left-sided thoracente sis. 700 mL of serosanguineous fluid was drained. The patient was noted to have elevated troponins consistent with the non-STEMI. She was seen in cons ultation by the water sponger, Dr. Medina. Optimal medical therapy was recommended. A 2D echo showed ejection fraction of 45% to 50%. There were no significant valvular abnormalities except mild to mo derate mitral valve regurgitation. Pericardium was normal with no significant pericardial effusion. Her condition improved during the hospitalization. The patient was clinically dehydrated and receive d IV fluid hydration. She is in a stable condition for transition to group home facility. MEDICATIONS ON DISCHARGE: 1. Levaquin 500 mg p.o. daily x5 days. 2. Allopurinol 100 mg daily. 3. Atorvastatin 20 mg at bedtime. 4. Fenofibrate 145 mg daily. 5. Breo one inhalation daily. 6. Gabapentin 300 mg t.i.d. 7. Hydralazine 10 mg twice daily as needed. 8. Hydromorphone 2 mg as needed. 9. Ranitidine 150 mg at bedtime. PLAN: Continue physical therapy and rehabilitation. Followup with PCP in one week. Dictated By: NAIF MIRELES/HENOK Conf#: [id number] DID#: [id number]
== END 2019-01-20 19:20 | DRG 280 ==
LOC: E/R 07:18 → 6WM 08:45
PROVIDERS: ADMIT Internal Medicine; ATTEND Internal Medicine
PROC: 0W9B3ZZ Drainage of Left Pleural Cavity, Percutaneous Approach (ICD-10-PCS; principal; 2019-01-18)
DX: I13.0 Hypertensive heart and chronic kidney disease with heart failure and stage 1 through stage 4 chronic kidney disease, or unspecified chronic kidney disease (principal); J18.9 Pneumonia, unspecified organism; I21.4 Non-ST elevation (NSTEMI) myocardial infarction; I50.23 Acute on chronic systolic (congestive) heart failure; J90 Pleural effusion, not elsewhere classified; N17.9 Acute kidney failure, unspecified; J98.11 Atelectasis; N18.3 Chronic kidney disease, stage 3 (moderate); E11.22 Type 2 diabetes mellitus with diabetic chronic kidney disease; R09.02 Hypoxemia; I48.91 Unspecified atrial fibrillation; E86.0 Dehydration; E78.5 Hyperlipidemia, unspecified; E87.5 Hyperkalemia
CPT/HCPCS: 36415; 71045; 76700; 76942; 80048; 80053; 81001; 82550; 82553; 83605; 83880; 84484; 85025; 85610; 85730; 87086; 93005; 93306; 94640; 94660; 97162; J0692; J1956; J2270; J2405; J3370; J7030